=== PATIENT | female | born 1935 | race African-American/Black ===

== ENCOUNTER 2019-09-02 21:05 | Emergency (ER) | payer SELFPAY ==
[~2019-09-02] VITALS: Ht 157.5 cm; Wt 50.0 kg
--- NOTE | 2019-09-02 21:32 | NUR ---
PT BIBA AFTER SUDDEN ONSET N/V AND FATIGUE AFTER EATING DINNER. PT DENIES FEVER, CHILLS OR ABD PAIN. PT CONNECTED TO ALL MONITORS. VSS. 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 DR. PAREDES TO BS FOR ASSESSMENT. AWIATING ORDERS.
--- NOTE | 2019-09-02 21:34 | NUR ---
PT ATTEMPTED TO VOID WITHOUT SUCCESS. NO UA SAMPLE AT THIS TIME.
--- NOTE | 2019-09-02 21:58 | NUR ---
PT BACK FROM XR. REPORT TO [facility].
--- NOTE | 2019-09-02 22:00 | NUR ---
REPORT RECEIVED AND CARE ASSUMED. PT RETURNING FROM RADIOLOGY AT THIS TIME.
[2019-09-02 22:15] LABS: BASOPHILS # (AUTO) 0.05 x10^3/uL (0-0.1); BASOPHILS % (AUTO) 1 % (0-1); EOSINOPHILS # (AUTO) 0.35 x10^3/uL (0-0.4); EOSINOPHILS % (AUTO) 7 % (1-7); LYMPHOCYTES % (AUTO) 17 % (22-44); MD NO; MEAN CORPUSCULAR HEMOGLOBIN 31.4 pg (27.0-34.8); MEAN CORPUSCULAR HGB CONC 32.9 g/dL (32.4-35.8); MEAN CORPUSCULAR VOLUME 95.4 fL (80-100); MONOCYTES % (AUTO) 9 % (2-9); NEUTROPHILS % (AUTO) 67 % (42-75); PLATELET COUNT 237 x10^3/uL (130-400); RED BLOOD COUNT 3.98 x10^6/uL (3.82-5.3); RED CELL DISTRIBUTION WIDTH 18.6 % (9.6-15.2)
--- NOTE | 2019-09-02 22:15 | NUR ---
REPORT RECEIVED AND CARE ASSUMED. PT RESTING WITH NO NEEDS EXPRESSED. VSS. STATES MILD NAUSEA CONTINUES BUT SIG RELIEF AFTER MEDS FROM [facility]. STATES UNABLE TO PROVIDE UA AT THIS TIME. DECLINES MINI CATH. CALL LIGHT IN REACH.
[2019-09-02 22:27] LABS: ALANINE AMINOTRANSFERASE 20 U/L (12-78); ANION GAP 8 mmol/L (5-15); CALCIUM 9.5 mg/dL (8.5-10.1); CHLORIDE 103 mmol/L (98-107)
[2019-09-02 22:29] LABS: ALKALINE PHOSPHATASE 64 U/L (45-117); BILIRUBIN,TOTAL 0.3 mg/dL (0.2-1.0); TOTAL PROTEIN 8.4 g/dL (6.4-8.2)
[2019-09-02] MEDS ORDERED: ALBUTEROL/IPRATROPIUM 2.5MG/0.5MG, 3 ML ONE (22:43)
[2019-09-02] MEDS ORDERED: ALBUTEROL/IPRATROPIUM 2.5MG/0.5MG, 3 ML NPPB ONE (23:00)
[2019-09-02 23:11] VITALS: BP 168/67
== END 2019-09-02 23:43 | disposition home or self-care (01) ==
LOC: ED 23:20
DX: R11.0 Nausea (principal); R53.1 Weakness; R05 Cough; I10 Essential (primary) hypertension; E11.9 Type 2 diabetes mellitus without complications; E78.5 Hyperlipidemia, unspecified; Z86.73 Personal history of transient ischemic attack (TIA), and cerebral infarction without residual deficits
CPT/HCPCS: 36415; 74022; 80053; 83690; 85025; 94640; 99284; J7620